=== PATIENT | female | born 1990 ===

== ENCOUNTER 2017-10-18 16:38 | Inpatient (IN) | payer OTHER ==
[~2017-10-18] VITALS: Ht 167.6 cm; Wt 3.6 kg
[~2017-10-18 16:38] MED LIST: PRENATAL 19 TA1 EACH PO; ZANTAC 7575 MG PO
== END 2017-10-21 14:12 | DRG 766 ==
LOC: LDR 16:38 → OB/GYN 16:38 → O/R 19:45 → OB/GYN 20:44
PROVIDERS: Obstetrics & Gynecology
PROC: 0UL70ZZ Occlusion of Bilateral Fallopian Tubes, Open Approach (ICD-10-PCS; 2017-10-18)
PROC: 4A1HXCZ Monitoring of Products of Conception, Cardiac Rate, External Approach (ICD-10-PCS; 2017-10-18)
PROC: 4A033R1 Measurement of Arterial Saturation, Peripheral, Percutaneous Approach (ICD-10-PCS; 2017-10-18)
PROC: 10D00Z1 Extraction of Products of Conception, Low, Open Approach (ICD-10-PCS; principal; 2017-10-18 17:00)
DX: O34.211 Maternal care for low transverse scar from previous cesarean delivery (principal); Z37.0 Single live birth; Z3A.38 38 weeks gestation of pregnancy; Z30.2 Encounter for sterilization